=== PATIENT | female | born 1975 | race Caucasian/White ===

== ENCOUNTER 2021-12-10 17:53 | Inpatient (IN) | payer OTHER, SELFPAY ==
[2021-12-10] VITALS (8 sets, daily range): BP systolic 93–136; BP diastolic 57–96; PULSE 52–69; RESP 10–20; TEMP 36.8; O2SAT 94–97
--- NOTE | ~2021-12-10 | CT_ITS ---
EXAMINATION: CT abdomen pelvis w con DATE: 12/10/2021 21:18 INDICATION: abd pain TECHNIQUE: Computed tomography (CT) of the abdomen and pelvis was performed with 100 mL Omnipaque-350 intravenous contrast. Automated exposure control and iterative reconstruction technique were employe d. The dose-length product was 933.57 mGy-cm. COMPARISON: 05/01/2019. FINDINGS: Lower thorax: Bibasilar scar/atelectasis. Liver: Periportal edema. Severe stenosis of the main portal vein, distal flow is preserved into the l iver. The main portal vein, confluence, and splenic vein are not well seen. Biliary/Gallbladder: Gallbladder is dilated to 4.3 cm. Common bile duct is not well seen. Pancreas: Chronic dilation of the pancreatic duct, to a lesser degree than on the comparison study. P ancreatic atrophy and calcification. Hypoenhancing areas in calcification present in the pancreatic h ead. Spleen: Normal. Adrenals:No mass. Kidneys: No mass, stone, or hydronephrosis. GI tract: No small or large bowel dilation. Normal appendix. Mesentery/Peritoneum: Peripancreatic mesenteric edema. Upper abdominal varices and lymphadenopathy. Retroperitoneum: No mass. Pelvis: Marked bladder distention. Remaining pelvic organs are within normal limits. Soft Tissues: Soft tissues and body wall unremarkable. Bones: No acute osseous finding. IMPRESSION: 1. Peripancreatic edema may reflect acute on chronic pancreatitis. 2. Hypodensity and calcification in the pancreatic head may reflect a pancreatic mass or edema. Kavon rison to more recent outside studies would be helpful if available. 3. Severe stenosis versus chronic nonocclusive thrombosis of the main portal vein with periportal cary ma. 4. Gallbladder hydrops, possibly due to common bile duct obstruction, noting the common bile duct is not well seen in this examination. 5. Upper abdominal varices and upper abdominal lymphadenopathy. 6. Marked bladder distention. Reviewed, dictated and finalized at location K. IMPRESSION: 1. Peripancreatic edema may reflect acute on chronic pancreatitis. 2. Hypodensity and calcification in the pancreatic head may reflect a pancreati c mass or edema. Comparison to more recent outside studies would be helpful if available. 3. Severe stenosis versus chronic nonocclusive thrombosis of the main portal ve in with periportal edema. 4. Gallbladder hydrops, possibly due to common bile duct obstruction, noting th e common bile duct is not well seen in this examination. 5. Upper abdominal varices and upper abdominal lymphadenopathy. 6. Marked bladder distention.
--- NOTE | ~2021-12-10 | US_ITS ---
EXAMINATION: US abdomen limited DATE: 12/11/2021 09:21 INDICATION: Pancreatitis. TECHNIQUE: Multiple grayscale and Doppler ultrasound images of the abdomen were obtained. COMPARISON: CT abdomen and pelvis 12/10/21 FINDINGS: The visualized portion of the head of the pancreas demonstrates heterogeneous echogenicity. There is dilatation of the pancreatic duct in the visualized portion of the body of the pancreas. Th e liver is normal without focal lesion. There is normal flow in the visualized portion of main portal vein. The gallbladder is distended. No gallstones or gallbladder wall thickening. There is no sonogr aphic Valencia sign. The common duct is normal and measures 5 mm. IMPRESSION: 1. Acute on chronic pancreatitis. 2. Gallbladder distention, which may be secondary to fasting. Reviewed, dictated and finalized at location A.
--- NOTE | 2021-12-10 18:00 | ED.ABDPAIN ---
HPI - Abdominal Pain General Chief Complaint: Abdominal Pain Stated Complaint: tumor on pancreas Time Seen by Provider: 12/10/21 18:00 History of Present Illness HPI narrative: 46-year-old female with a history of pancreatic cancer presents to the emergency room via EMS for evaluation of abdominal pain. Patient states that she is a chronic alcoholic and has been drinking today which caused her to have suspected pancreatitis. Patient states she has been nauseated without any vomiting. Patient is currently under the care of oncologist and GI specialty in [facility]. Related Data Allergies Allergy/AdvReac Type Severity Reaction Status Date / Time Penicillins Allergy Unknown Unknown Verified 12/10/21 20:11 Review of Systems Review of Systems: CONSTITUTIONAL: Denies fever, chills, or sweats. EYES: Denies visual changes, redness, or discharge. ENT: Denies rhinorrhea, congestion, sore throat, or otalgia. CARDIOVASCULAR: Denies chest pain, palpitations, or edema. RESPIRATORY: Denies cough or dyspnea. GASTROINTESTINAL: Reports abdominal pain and nausea GENITOURINARY: Denies dysuria or hematuria. SKIN: Denies rash or itching. MUSCULOSKELETAL: Denies back pain, joint pain, or myalgia. NEUROLOGIC: Denies headache, numbness, dizziness, or weakness. PSYCHIATRIC: Denies anxiety or depression. Exam Narrative: GENERAL: Well-appearing, well-nourished, no physical limitations, and in no acute distress. HEAD: Normocephalic, atraumatic. EYES: Conjunctivae normal, PERRLA and EOMI. CHEST: Clear to auscultation. No respiratory distress. No wheezes rales or rhonchi. No tenderness. HEART: Regular rate and rhythm. No murmur heard. Normal peripheral pulses. ABDOMEN: Soft, epigastric and upper abdominal tenderness, nondistended, normal active bowel sounds. EXTREMITIES: Normal range of motion. No edema. No clubbing or cyanosis SKIN: Warm, dry, no rash. No noted wounds NEURO: No focal deficits. Alert and oriented x3. MAEW. CN's II-XI intact bilaterally, normal gait PSYCH: Cooperative. Normal mood and affect. Course Vital Signs Vital signs: Vital Signs Temperature 36.8 C 12/10/21 17:55 Pulse Rate 69 12/10/21 17:55 Respiratory Rate 20 12/10/21 17:55 Blood Pressure 117/64 12/10/21 17:55 Pulse Oximetry 96 12/10/21 17:55 Oxygen Delivery Room Air 12/10/21 17:55 Temperature 36.8 C 12/10/21 17:55 Pulse Rate 52 L 12/10/21 22:54 Respiratory Rate 12 12/10/21 22:54 Blood Pressure 127/80 12/10/21 22:54 Pulse Oximetry 95 12/10/21 22:54 Oxygen Delivery Room Air 12/10/21 17:55 MDM - Abdominal Pain Lab Data Result diagrams: 12/10/21 18:23 12/10/21 18:23 Labs: Lab Results 12/10/21 12/10/21 12/10/21 Range/Units 18:23 18:23 18:23 WBC 8.1 (4.5-10.0) K/mm3 RBC 4.56 (4.2-5.4) M/mm3 Hgb 12.8 (12.0-15.0) g/dL Hct 39.0 (37.0-47.0) % MCV 85.5 (80-100) fl MCH 28.1 (26-34) pg MCHC 32.8 (32-36) g/dl RDW 14.2 (11.5-14.5) % Plt Count 307 (150-375) k/mm3 MPV 9.7 (7.4-10.4) fl Immature Gran % (Auto) 0.1 (0-0.5) % Neut % (Auto) 53.2 (45.5-73.1) % Lymph % (Auto) 37.3 (18.3-44.2) % Carroll % (Auto) 8.6 H (2.6-8.5) % Eos % (Auto) 0.7 (0-4.4) % Baso % (Auto) 0.1 L (0.2-1.2) % Lymph # (Auto) 3.02 (0.9-3.2) K/mm3 Carroll # (Auto) 0.7 H (0.1-0.6) K/mm3 Eos # (Auto) 0.1 (0-0.3) K/mm3 Baso # (Auto) 0.0 (0.0-0.1) K/mm3 Abs Immat Gran (auto) 0.01 (0.00-0.031) K/mm3 Absolute Neuts (auto) 4.3 (1.3-6.7) K/mm3 Absolute Nucleated RBC 0.0 (0.0-0.012) K/mm3 Nucleated RBC % 0.0 (0.0-0.2) % Sodium 143 (137-145) mmol/L Potassium 4.2 (3.4-5.0) mmol/L Chloride 105 (98-107) mmol/L Carbon Dioxide 23 (22-30) mmol/L Anion Gap 15 (8-16) mmol/L BUN 19 H (7-17) mg/dL Creatinine 0.80 (0.7-1.0) mg/dL Estim Creat Clear Calc 96 ml/min Estimated GFR > 60 (59 - )
[2021-12-10 18:42] LABS: Basophils Percent Auto 0.1 % (0.2-1.2); Eosinophils Absolute Auto 0.1 K/mm3 (0-0.3); Eosinophils Percent Auto 0.7 % (0-4.4); Hemoglobin 12.8 g/dL (12.0-15.0); Immature Granulocyte Absolute 0.01 K/mm3 (0.00-0.031); Immature Granulocyte Percent A 0.1 % (0-0.5); Lymphocytes Absolute Auto 3.02 K/mm3 (0.9-3.2); Lymphocytes Percent Auto 37.3 % (18.3-44.2); Mean Corpuscular HGB Conc 32.8 g/dl (32-36); Mean Corpuscular Hemoglobin 28.1 pg (26-34); Mean Corpuscular Volume 85.5 fl (80-100); Mean Platelet Volume 9.7 fl (7.4-10.4); Monocytes Absolute Auto 0.7 K/mm3 (0.1-0.6); Monocytes Percent Auto 8.6 % (2.6-8.5); Neutrophils Absolute Auto 4.3 K/mm3 (1.3-6.7); Neutrophils Percent Auto 53.2 % (45.5-73.1); Platelet Count Result 307 k/mm3 (150-375); Red Blood Count 4.56 M/mm3 (4.2-5.4); Red Cell Distribution Width 14.2 % (11.5-14.5); White Blood Count 8.1 K/mm3 (4.5-10.0)
[2021-12-10 18:53] LABS: Ethanol 258 mg/dL (<10)
[2021-12-10 18:54] LABS: Alanine Aminotransferase 61 U/L (6-35); Albumin Level 4.8 g/dL (3.5-5.1); Alkaline Phosphatase 104 U/L (38-126); Anion Gap 15 mmol/L (8-16); Aspartate Amino Transferase 54 U/L (14-36); Bilirubin,Total 0.3 mg/dL (0.2-1.3); Blood Urea Nitrogen 19 mg/dL (7-17); Calcium 8.6 mg/dL (8.4-10.2); Carbon Dioxide 23 mmol/L (22-30); Chloride 105 mmol/L (98-107); Estimated CRCL calculation 96 ml/min; Estimated Glomerular Filt Rate > 60; Glucose 97 mg/dL (65-110); Lipase 59 U/L (23-300); Potassium 4.2 mmol/L (3.4-5.0); Sodium 143 mmol/L (137-145)
[2021-12-10] MEDS: SODIUM CHLORIDE 0.9% IV 1,000 ML 999 ML IV CONT ×2 (20:12→22:15)
[2021-12-10] MEDS: METOCLOPRAMIDE HCL INJ 10 MG/2 ML VIAL IV PUSH (20:12)
[2021-12-10] MEDS: diphenhydrAMINE HCl INJ 50 MG/ML VIAL 25 MG IV PUSH (20:15)
--- NOTE | 2021-12-10 20:53 | PC.NURSE ---
Pt requesting pain medication. BANDAR Ta notified, no new orders.
--- NOTE | 2021-12-10 21:05 | PC.NURSE ---
Pt made aware of need for urine sample, refused to attempt. Pt educated on purpose of urine sample, and need for test for CT. Pt states Im not , just do the scan . Ct and PRIMARY CARE COORDINATOR Keyon notified.
[2021-12-10] MEDS: KETOROLAC 30 MG/ML VIAL (*BKC) IV PUSH (21:39)
--- NOTE | 2021-12-10 21:42 | PC.NURSE ---
Pt reports she urinated in CT, but did not provide sample for testing.
[2021-12-10] MEDS: HYDROmorphone HCL INJ (*CRX) 1 MG/ML SYR 0.5 MG IV PUSH (22:15)
[2021-12-10 22:33] LABS: Appearance Urine Clear (Clear); Bilirubin Urine Negative (Negative); Color Urine Yellow (Yellow); Glucose Urine UA Negative (Negative); Ketones Urine Negative (Negative); Leukocyte Esterase Ur Negative LEU/UL (Negative); Nitrate Urine Negative (Negative); Protein Urine Negative (Negative); Specific Grav Ur <= 1.005 (1.001-1.035); Urobilinogen Urine 0.2 mg/dL (<2.0); pH Urine 5.5 (5.0-9.0)
[2021-12-10 22:34] LABS: RBC Urine 0-2 /hpf (0-2); Squamous Epithelial Cell Urine Rare /hpf (Few)
[2021-12-10 22:35] LABS: Add Urine Microscopic? YES; Blood Urine Trace (Negative)
[2021-12-10 22:46] LABS: Amphetamine Screen Urine Negative (Negative); Barbiturate Screen Urine Negative (Negative); Benzodiazepines Screen Urine Negative (Negative); Cannabinoid Screen Urine Positive (Negative); Cocaine Screen Urine Negative (Negative); Methadone Screen Urine Negative (Negative); Opiate Screen Urine Negative (Negative); Phencyclidine Screen Urine Negative (Negative)
[2021-12-10] MEDS: THIAMINE HCL 200 MG/2 ML VIAL 100 MG IV PUSH (23:10)
[2021-12-10 23:30] LABS: SARS-CoV-2 RNA PCR Negative
[2021-12-10] MEDS: SODIUM CHLORIDE 0.9% IV 1,000 ML 200 ML IV CONT (23:52)
[2021-12-11 00:16] VITALS: BP 140/83; PULSE 50; RESP 28; TEMP 36.9; O2SAT 99; BMI 31.1
[2021-12-11] MEDS: HYDROmorphone HCL INJ (*CRX) 1 MG/ML SYR 0.5 MG IV PUSH (00:22)
--- NOTE | 2021-12-11 00:29 | ADMGEN ---
This patient, Chitra Connor, was admitted to [facility] Surg Room 303-01. Patient/family oriented to hospital policies and general routines including ID bracelet, bed and alarms, visiting hours, pain management, procedures, bathroom and other care routines, personal items, smoking policy, room service/diet, and visiting hours. Information on how to activate the Rapid Response Team has been discussed. Patient/Family are encouraged to report perceived risks to care and to ask questions if they do not understand what they are told or what they should do.
--- NOTE | 2021-12-11 01:24 | PM.IMHP ---
H&P: HPI History of Present Illness Date/Time: 12/11/21 01:24 Chief Complaint: Abdominal pain Narrative: 46-year-old female with a past medical history of alcoholism, chronic pancreatitis, chronic pancreatic insufficiency, esophageal varices, benign pancreatic mass and pre diabetes who presented to the ER with abdominal pain after going on a 4 day binge. The patient reports that she has been sober from alcohol for 27 years. She came up to [place] from [facility] to visit her family. Due to various social stressors she started drinking again 4 days ago. She has been binge drinking since that time. Her last alcoholic beverage was on the evening of the . She started having abdominal pain the day after she started drinking. The pain is a 10/10 in intensity and is constant and aching. She has been able to drink her alcohol but has not been able to eat any food. Her pain became so severe that she began having nausea and vomiting and is now having persistent dry heaves. She denies any hematemesis or coffee-ground emesis. She does have history of chronic constipation and did use MiraLax for couple of days. Since that time she has had 1 soft stool yesterday. She denies any hematochezia or melena. She reports that she chronically feels bloated. She denies any chest pain, shortness breast, cough, or congestion. She reports no sensation of incomplete bladder emptying, dysuria or changes in urinary frequency. She reports that she has been taking ODT Zofran with no relief in her nausea. She is upset with herself that she has relapsed with her alcohol use after being sober since she was 27 years old. She reports that she has a therapist herself and knows the triggers. She has even been talking with her therapist on a daily basis herself. Review of Systems Review of Systems: 12 systems were reviewed with pertinent positives and negatives per HPI. Except as documented in the HPI, all other systems were reviewed and are negative. [facility] Past Medical History Medical History (Updated 12/11/21 @ 02:22 by Zuly Nguyen DO) Alcoholism Anorexia nervosa Anxiety and depression Chronic pancreatitis 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 Hypothyroidism Pancreatic mass She reports that she has had 8 biopsies in 2020 with benign pathology Portal vein thrombosis Pre-diabetes Surgical History Surgical History (Updated 12/11/21 @ 02:11 by Zuly Nguyen DO) History of esophagogastroduodenoscopy (EGD) History of tonsillectomy and adenoidectomy Family History Family History (Updated 12/11/21 @ 02:12 by Zuly Nguyen DO) Mother DVT (deep venous thrombosis) Father Sjogren's disease Suicide and self-inflicted injury by firearm Sibling Pulmonary embolism Social History Social History (Updated 12/11/21 @ 02:14 by Zuly Nguyen DO) Smoking packs per day: 0.15 Smoking cigarettes per day: 3.0 Years smoked: 28 Smoking pack-years: 4.20 Smoking status: Current every day smoker Tobacco type: cigarettes Alcohol intake: current Alcohol use details: She drank heavily for 7 years but quit at the age of 27. She relapsed 12/07/2021. Substance use: current Other substance usage details: THC gummies Additional living arrangements comments: She lives in [facility]. She lives alone. She is in the area visiting her mother. Additional occupation/education comments: She has a therapist. Spiritual care concerns: No Meds Home Medications and Allergies Home Medications Medication Instructions Recorded Confirmed Type diclofenac sodium 1 % topical gel 2 g topical Q4H PRN Muscle Pain 12/11/21 12/11/21 History fluoxetine 40 mg capsule 40 mg PO DAILY 12/11/21 12/11/21 History gabapentin 100 mg capsule 100 mg PO TID 12/11/21 12/11/21 History levothyroxine 75 mcg tablet 75 mcg PO DAILY 12/11/21 12/11/21 History [id number]-nxusiee 2 cap PO TI
[2021-12-11] MEDS: FAMOTIDINE 20 MG/2 ML VIAL IV PUSH ×3 (02:35→21:52)
[2021-12-11] MEDS: HYDROmorphone HCL INJ (*CRX) 1 MG/ML SYR IV PUSH ×7 (02:39→21:52)
[2021-12-11] MEDS: KETOROLAC 15 MG/ML VIAL (*BKC) IV PUSH (05:44)
[2021-12-11] MEDS: SODIUM CHLORIDE 0.9% IV 1,000 ML 200 ML IV CONT ×2 (05:51→11:50)
[2021-12-11 06:00] VITALS: BP 129/79; PULSE 62; RESP 18; TEMP 36.5; O2SAT 92
[2021-12-11 06:45] LABS: Hematocrit 36.6 % (37.0-47.0); Hemoglobin 11.6 g/dL (12.0-15.0); Mean Corpuscular HGB Conc 31.7 g/dl (32-36); Mean Corpuscular Hemoglobin 28.2 pg (26-34); Mean Corpuscular Volume 89.1 fl (80-100); Mean Platelet Volume 10.3 fl (7.4-10.4); Platelet Count Result 240 k/mm3 (150-375); Red Blood Count 4.11 M/mm3 (4.2-5.4); Red Cell Distribution Width 14.6 % (11.5-14.5); White Blood Count 7.1 K/mm3 (4.5-10.0)
[2021-12-11 06:57] LABS: Alanine Aminotransferase 60 U/L (6-35); Albumin Level 3.6 g/dL (3.5-5.1); Alkaline Phosphatase 94 U/L (38-126); Anion Gap 9 mmol/L (8-16); Aspartate Amino Transferase 58 U/L (14-36); Bilirubin,Total 0.3 mg/dL (0.2-1.3); Blood Urea Nitrogen 16 mg/dL (7-17); Calcium 7.9 mg/dL (8.4-10.2); Carbon Dioxide 22 mmol/L (22-30); Chloride 111 mmol/L (98-107); Estimated CRCL calculation 127 ml/min; Estimated Glomerular Filt Rate > 60; Glucose 76 mg/dL (65-110); Potassium 4.2 mmol/L (3.4-5.0); Sodium 142 mmol/L (137-145)
[2021-12-11] MEDS: ENOXAPARIN 40 MG/0.4 ML SYRINGE SUB-Q (08:08)
[2021-12-11] MEDS: THIAMINE HCL 200 MG/2 ML VIAL 100 MG IV PUSH (08:09)
[2021-12-11] MEDS: ONDANSETRON INJ 4 MG/2 ML VIAL IV PUSH (08:19)
[2021-12-11] MEDS: chlordiazePOXIDE (*CRX) 25 MG CAPSULE PO ×3 (10:19→23:08)
--- NOTE | 2021-12-11 12:46 | PM.IMPN ---
Progress Note: A&P Assessment and Plan (1) Acute on chronic pancreatitis: Code(s): K85.90 - Acute pancreatitis without necrosis or infection, unspecified; K86.1 - Other chronic pancreatitis Status: Acute Assessment and Plan: Patient has acute on chronic pancreatitis due to relapse in her alcoholism. NPO diet. Will allow ice chips. IV fluid rehydration. Decrease to 125 ml/hr. Scheduled IV tylenol with prn dilaudid for pain RUQ US showed gallbladder distension which is likely due to fasting state. No eivdence of common bile duct dilation. Lipase is normal AST and ALT are minimally elevated. Will continue to monitor. Total bili is normal Advance to clear liquids when pain is improving and nausea/vomiting resolve (2) Alcohol intoxication in relapsed alcoholic: Code(s): F10.21 - Alcohol dependence, in remission Status: Acute Assessment and Plan: Her alcohol level on presentation was 3 times the legal limit. The patient reports that this was an isolated recurrence of her drinking (due to issues with re-entering her old environment) Implement CIWA protocol Librium prn CIWA >8 Thiamine and folic acid supplementation Patient has been in contact with her therapist She plans to abstain from alcohol from here on out (3) Intractable nausea and vomiting: Code(s): R11.2 - Nausea with vomiting, unspecified Status: Acute Assessment and Plan: Secondary to pancreatitis. continue p.rkaela Looney (4) Pancreatic mass: Code(s): K86.89 - Other specified diseases of pancreas Status: Acute Assessment and Plan: Known problem. The patient reports that she has had multiple EGDs with biopsies over the last year. Her pathology is always returned as benign. Outpatient follow up/monitoring as scheduled Subjective Date/time seen: 12/11/21 12:46 Interval history: Date of service: 12/23/2021 Chitra Connor is a 46-year-old female with history of alcohol abuse in remission up until 3 days ago, chronic pancreatitis, anxiety, depression, hypothyroidism, and prediabetes who is seen in follow-up for acute on chronic pancreatitis. She complains of 10/10 epigastric pain that radiates to the back. She did have some improvement after getting pain medicine earlier this morning and her pain decreased to about a 6/10 at that time, but is now back up. She endorses nausea and 2 episodes of bilious emesis today. She had a loose, light color bowel movement today. Denies any blood in her stool. She denies fevers or chills. No shortness of breath, cough, chest pain, palpitations. She does feel dizzy and weak. She endorses sweats, anxiety, and tremor. Denies hallucinations. Denies history of alcohol withdrawal seizure. States she has been in contact with her therapist who is helping her through this difficult time. The patient states that she just came back to this area from [place], [place]. She had not been back since the of her father and her brother. Unfortunately returning to this area was triggering for her. Her mother had alcohol in the house and she began drinking again. Review of Systems Review of Systems: All systems reviewed & are unremarkable except as noted in HPI and below Exam Narrative: General: Well-nourished, well-appearing 46-year-old female, sitting up in bed, comfortable, NARD Neuro: awake, alert and oriented x4, speech clear, no focal neuro deficits noted HEENMT: normocephalic, atraumatic, EOMI, sclerae anicteric, moist oral mucosa Respiratory: clear to auscultation bilaterally, nonlabored breathing Cardio: regular rate, regular rhythm with S1-S2 Abdomen: nondistended, normoactive bowel sounds, soft, tender to palpation in epigastric region Extremities: no edema, erythema, or tenderness to palpation, DP pulses 2+ bilaterally Skin: no rashes or lesions, warm and dry Psych: appropriate mood and affect, judgment and insight intact Objective Adin
[2021-12-11 14:00] VITALS: BP 131/81; PULSE 60; RESP 14; TEMP 36.6; O2SAT 98
[2021-12-11] MEDS: SODIUM CHLORIDE 0.9% IV 1,000 ML 125 ML IV CONT (16:45)
[2021-12-11 20:00] VITALS: PULSE 60; RESP 14; O2SAT 98
[2021-12-11 21:28] VITALS: BP 128/80; PULSE 50; RESP 18; TEMP 36.9; O2SAT 95
[2021-12-11] MEDS: traMADol HCL (*CRX) 50 MG TABLET PO (23:07)
[2021-12-12] MEDS: SODIUM CHLORIDE 0.9% IV 1,000 ML 125 ML IV CONT ×3 (00:29→21:21)
[2021-12-12] MEDS: HYDROmorphone HCL INJ (*CRX) 1 MG/ML SYR IV PUSH ×7 (01:27→23:20)
[2021-12-12] MEDS: traMADol HCL (*CRX) 50 MG TABLET PO ×3 (03:03→12:49)
[2021-12-12 05:29] VITALS: BP 137/85; PULSE 52; RESP 17; TEMP 36.7; O2SAT 94
[2021-12-12] MEDS: PROMETHAZINE HCL 25 MG/ML AMPUL IM (05:58)
[2021-12-12 06:26] LABS: Anion Gap 7 mmol/L (8-16); Blood Urea Nitrogen 6 mg/dL (7-17); Calcium 8.2 mg/dL (8.4-10.2); Carbon Dioxide 25 mmol/L (22-30); Chloride 108 mmol/L (98-107); Estimated CRCL calculation 127 ml/min; Estimated Glomerular Filt Rate > 60; Glucose 82 mg/dL (65-110); Lipase 27 U/L (23-300); Magnesium 1.9 mg/dL (1.6-2.3); Potassium 3.6 mmol/L (3.4-5.0); Sodium 140 mmol/L (137-145)
[2021-12-12 06:33] LABS: Hematocrit 34.2 % (37.0-47.0); Hemoglobin 10.7 g/dL (12.0-15.0); Mean Corpuscular HGB Conc 31.3 g/dl (32-36); Mean Corpuscular Hemoglobin 27.9 pg (26-34); Mean Corpuscular Volume 89.3 fl (80-100); Mean Platelet Volume 9.8 fl (7.4-10.4); Platelet Count Result 169 k/mm3 (150-375); Red Blood Count 3.83 M/mm3 (4.2-5.4); Red Cell Distribution Width 14.7 % (11.5-14.5); White Blood Count 4.1 K/mm3 (4.5-10.0)
[2021-12-12 08:12] VITALS: PULSE 82; O2SAT 95
[2021-12-12] MEDS: ENOXAPARIN 40 MG/0.4 ML SYRINGE SUB-Q (08:22)
[2021-12-12] MEDS: THIAMINE HCL 200 MG/2 ML VIAL 100 MG IV PUSH (08:23)
[2021-12-12] MEDS: FAMOTIDINE 20 MG/2 ML VIAL IV PUSH ×2 (08:23→21:26)
[2021-12-12] MEDS: chlordiazePOXIDE (*CRX) 25 MG CAPSULE PO ×3 (11:02→23:28)
--- NOTE | 2021-12-12 11:56 | PM.IMPN ---
Progress Note: A&P Assessment and Plan (1) Acute on chronic pancreatitis: Code(s): K85.90 - Acute pancreatitis without necrosis or infection, unspecified; K86.1 - Other chronic pancreatitis Status: Acute Assessment and Plan: Patient has acute on chronic pancreatitis due to relapse in her alcoholism. NPO diet. Will allow ice chips. Continue IVF of 125 ml/hr. Continue Tylenol and Dilaudid for pain as well as Zofran for antiemetic. RUQ US showed gallbladder distension which is likely due to fasting state. No eivdence of common bile duct dilation. Lipase remains normal AST and ALT are minimally elevated. Will continue to monitor. Total bili is normal Unable to advance diet today. (2) Alcohol intoxication in relapsed alcoholic: Code(s): F10.21 - Alcohol dependence, in remission Status: Acute Assessment and Plan: Her alcohol level on presentation was 3 times the legal limit. The patient reports that this was an isolated recurrence of her drinking (due to issues with re-entering her old environment) Implement CIWA protocol Librium prn CIWA >8 Thiamine and folic acid supplementation Patient has been in contact with her therapist She plans to abstain from alcohol from here on out (3) Intractable nausea and vomiting: Code(s): R11.2 - Nausea with vomiting, unspecified Status: Acute Assessment and Plan: Secondary to pancreatitis. continue p.r.n. Zofran (4) Pancreatic mass: Code(s): K86.89 - Other specified diseases of pancreas Status: Acute Assessment and Plan: Known problem. The patient reports that she has had multiple EGDs with biopsies over the last year. Her pathology is always returned as benign. Outpatient follow up/monitoring as scheduled Time Spent With Patient Time with patient: 15 - 25 minutes Subjective Date/time seen: 12/12/21 1030 This pt. is examined at the bedside in interval assessment after she was admitted for an acute on chronic pancreatitis and she had relapsed on her ETOH abuse after being sober for 27 years. She continues to have Epigastric and LUQ abdominal pain with nausea but no vomiting. She has no CP, Dyspnea, Headache, Lightheadedness or Dizziness. Review of Systems Review of Systems: All systems reviewed & are unremarkable except as noted in HPI and below Exam Const: General: no acute distress and uncomfortable HENMT: General nose exam: Normal nares present and no epistaxis Mouth: Yes moist mucous membranes Eyes: General: appearance normal, both eyes and all related structures Sclera: sclerae normal Pupils: Equal, round and reactive pupils present (Bilateral pupils are small and 2 mm.) EOM: EOMs intact bilaterally Neck: Neck: supple and no JVD Lymphatic: lymphadenopathy not noted Resp: Effort & Inspection: normal respiratory effort Auscultation: clear to auscultation bilaterally Cardio: Rate: regular rate Rhythm: regular rhythm Heart sounds: no gallops, no murmurs and no rubs GI: GI Palp: Yes Soft to palpation Auscultation: normal bowel sounds Skin: General skin exam: normal color and no rashes or lesions noted Wounds: no wounds Neuro: General: gait normal Speech: normal speech Motor exam (neuro): 5/5 motor strength present throughout and Normal motor muscle tone present throughout Sensory Exam: normal sensation Extrem: General: normal to inspection, no edema and no pedal edema Other: Freely and equally MAEW and without deficit. Psych: Mental Status: mental status grossly normal Affect: normal affect Objective Data Vital Signs Vital Signs: Vital Signs - 24 hr 12/11/21 14:00 12/11/21 20:00 12/11/21 21:28 Temperature 97.9 F 98.4 F Pulse Rate 60 60 50 L Respiratory Rate 14 14 18 Blood Pressure 131/81 128/80 Pulse Oximetry 98 98 95 Oxygen Delivery Room Air 12/12/21 05:29 12/12/21 08:12 Temperature 98.1 F Pulse Rate 52 L 82 Respiratory Rate 17 Blood Pr
[2021-12-12] MEDS: ONDANSETRON INJ 4 MG/2 ML VIAL IV PUSH (12:45)
[2021-12-12 14:00] VITALS: BP 132/78; PULSE 60; RESP 16; TEMP 36.2; O2SAT 95
--- NOTE | 2021-12-12 18:01 | PC.NURSE ---
pt is getting prn dilauded and librium on the clock. pt seems to get very agitated if you are not on the dot with giving these as needed medications. this nurse described the duration and frequency of pt's as needed medications. pt apologized to this nurse for raising voice and getting agitated. pt seems to forget about how often she can get her meds and when the last time she received prn medications.
[2021-12-12 20:00] VITALS: BP 140/88; PULSE 58; RESP 16; O2SAT 92
[2021-12-12 21:23] VITALS: O2SAT 92
[2021-12-12 22:00] VITALS: BP 140/88; PULSE 58; RESP 16; TEMP 36.3; O2SAT 92
[2021-12-13] VITALS: BP 140/88
[2021-12-13] MEDS: HYDROmorphone HCL INJ (*CRX) 1 MG/ML SYR IV PUSH ×2 (02:26→05:58)
[2021-12-13 04:00] VITALS: BP 135/87
[2021-12-13] MEDS: SODIUM CHLORIDE 0.9% IV 1,000 ML 125 ML IV CONT ×2 (05:56→16:31)
[2021-12-13] MEDS: chlordiazePOXIDE (*CRX) 25 MG CAPSULE PO ×3 (05:58→20:12)
[2021-12-13 06:00] VITALS: BP 135/87; PULSE 65; RESP 18; TEMP 36.3; O2SAT 97
[2021-12-13 07:28] LABS: Basophils Percent Auto 0.3 % (0.2-1.2); Eosinophils Absolute Auto 0.1 K/mm3 (0-0.3); Hematocrit 34.2 % (37.0-47.0); Hemoglobin 10.6 g/dL (12.0-15.0); Immature Granulocyte Absolute 0.01 K/mm3 (0.00-0.031); Immature Granulocyte Percent A 0.3 % (0-0.5); Lymphocytes Absolute Auto 1.24 K/mm3 (0.9-3.2); Lymphocytes Percent Auto 31.5 % (18.3-44.2); Mean Corpuscular Hemoglobin 27.7 pg (26-34); Mean Corpuscular Volume 89.5 fl (80-100); Mean Platelet Volume 10.2 fl (7.4-10.4); Monocytes Absolute Auto 0.4 K/mm3 (0.1-0.6); Monocytes Percent Auto 9.1 % (2.6-8.5); Neutrophils Absolute Auto 2.2 K/mm3 (1.3-6.7); Neutrophils Percent Auto 55.8 % (45.5-73.1); Platelet Count Result 163 k/mm3 (150-375); Red Blood Count 3.82 M/mm3 (4.2-5.4); Red Cell Distribution Width 14.6 % (11.5-14.5); White Blood Count 3.9 K/mm3 (4.5-10.0)
[2021-12-13 07:47] LABS: Alanine Aminotransferase 49 U/L (6-35); Albumin Level 3.4 g/dL (3.5-5.1); Alkaline Phosphatase 103 U/L (38-126); Anion Gap 8 mmol/L (8-16); Aspartate Amino Transferase 33 U/L (14-36); Bilirubin,Total 0.6 mg/dL (0.2-1.3); Blood Urea Nitrogen 5 mg/dL (7-17); Calcium 8.4 mg/dL (8.4-10.2); Carbon Dioxide 25 mmol/L (22-30); Chloride 107 mmol/L (98-107); Estimated CRCL calculation 127 ml/min; Estimated Glomerular Filt Rate > 60; Glucose 90 mg/dL (65-110); Lipase 28 U/L (23-300); Magnesium 1.7 mg/dL (1.6-2.3); Potassium 3.6 mmol/L (3.4-5.0); Sodium 140 mmol/L (137-145)
[2021-12-13] MEDS: ENOXAPARIN 40 MG/0.4 ML SYRINGE SUB-Q (08:41)
[2021-12-13] MEDS: THIAMINE HCL 200 MG/2 ML VIAL 100 MG IV PUSH (08:41)
[2021-12-13] MEDS: FAMOTIDINE 20 MG/2 ML VIAL IV PUSH ×2 (08:41→20:15)
[2021-12-13] MEDS: HYDROcodone/acetaminophen (*CRX) 5-325 MG TABLET 1 TAB PO ×3 (08:49→20:07)
--- NOTE | 2021-12-13 08:57 | PM.IMPN ---
Progress Note: A&P Assessment and Plan (1) Acute on chronic pancreatitis: Code(s): K85.90 - Acute pancreatitis without necrosis or infection, unspecified; K86.1 - Other chronic pancreatitis Status: Acute Assessment and Plan: Patient has acute on chronic pancreatitis due to relapse in her alcoholism. diet advanced to clear liquid. Continue IVF of 125 ml/hr. Continue Tylenol For pain in addition to change of dose of Dilaudid to 0.5 mg q.6 hours p.r.n. and the addition of Lehigh 5/325 q.6 hours p.r.n. pain. Goal is to decrease the amount of IV Dilaudid Utilized. RUQ US showed gallbladder distension which is likely due to fasting state. No eivdence of common bile duct dilation. Lipase remains normal AST and ALT are minimally elevated. Will continue to monitor. Total bili is normal (2) Alcohol intoxication in relapsed alcoholic: Code(s): F10.21 - Alcohol dependence, in remission Status: Acute Assessment and Plan: Her alcohol level on presentation was 3 times the legal limit. The patient reports that this was an isolated recurrence of her drinking (due to issues with re-entering her old environment) Implement CIWA protocol Librium prn CIWA >8 Thiamine and folic acid supplementation Patient has been in contact with her therapist She plans to abstain from alcohol from here on out (3) Intractable nausea and vomiting: Code(s): R11.2 - Nausea with vomiting, unspecified Status: Acute Assessment and Plan: Secondary to pancreatitis. continue p.r.n. Zofran (4) Pancreatic mass: Code(s): K86.89 - Other specified diseases of pancreas Status: Acute Assessment and Plan: Known problem. The patient reports that she has had multiple EGDs with biopsies over the last year. Her pathology is always returned as benign. Outpatient follow up/monitoring as scheduled Time Spent With Patient Time with patient: 15 - 25 minutes Subjective Date/time seen: 12/13/21 6827 This 46-year-old female patient was examined at the bedside today following her admission for chronic pancreatitis after relapsing and alcohol binge. She continues to complain of some left upper quadrant abdominal pain and epigastric abdominal pain, however reports it is slightly better. Review of pain medications utilized demonstrates the patient has continually received Dilaudid every 3 hours. As patient does endorse that her pain is somewhat better this morning I will decrease her Dilaudid from 1 mg every 3 hours p.r.n. to 0.5 mg Q 6 p.r.n. and also initiate Lehigh 5/325 Q 6 hours p.r.n.. Her diet is being advanced to a clear liquid and we will continue to monitor her she feels overnight and in the morning. She currently denies any chest pain, dyspnea, nausea, vomiting, diarrhea, headache, lightheadedness, dizziness. Review of Systems Review of Systems: All systems reviewed & are unremarkable except as noted in HPI and below Exam Const: General: no acute distress and uncomfortable HENMT: General nose exam: Normal nares present and no epistaxis Mouth: Yes moist mucous membranes Eyes: General: appearance normal, both eyes and all related structures Sclera: sclerae normal Pupils: Equal, round and reactive pupils present (Bilateral pupils are small and 2 mm.) EOM: EOMs intact bilaterally Neck: Neck: supple and no JVD Lymphatic: lymphadenopathy not noted Resp: Effort & Inspection: normal respiratory effort Auscultation: clear to auscultation bilaterally Cardio: Rate: regular rate Rhythm: regular rhythm Heart sounds: no gallops, no murmurs and no rubs GI: Inspection: non-distended GI Palp: Yes Soft to palpation and Yes Tenderness to palpation present (GI) ( Epigastric and left upper quadrant) Auscultation: normal bowel sounds Skin: General skin exam: normal color and no rashes or lesions noted Wounds: no wounds Neuro: General: gait normal Cranial nerves: Yes Equal, round
[2021-12-13] MEDS: HYDROmorphone HCL INJ (*CRX) 1 MG/ML SYR 0.5 MG IV PUSH ×3 (10:54→22:28)
[2021-12-13 14:44] VITALS: BP 142/88; PULSE 61; RESP 16; TEMP 36.3; O2SAT 99
[2021-12-13] MEDS: PROMETHAZINE HCL 25 MG/ML AMPUL IM (18:00)
[2021-12-13 21:41] VITALS: BP 132/99; PULSE 63; RESP 20; TEMP 36.9; O2SAT 97
[2021-12-14 04:00] VITALS: BP 143/78
[2021-12-14 05:39] VITALS: BP 143/78; PULSE 51; RESP 17; TEMP 36.6; O2SAT 97
[2021-12-14] MEDS: ENOXAPARIN 40 MG/0.4 ML SYRINGE SUB-Q (08:44)
[2021-12-14] MEDS: FOLIC ACID 1 MG TABLET PO (09:48)
[2021-12-14] MEDS: FLUoxetine HCL 20 MG CAPSULE 40 MG PO (09:48)
[2021-12-14] MEDS: GABAPENTIN 100 MG CAPSULE PO (09:48)
[2021-12-14] MEDS: LEVOTHYROXINE SODIUM 75 MCG TABLET PO (09:48)
[2021-12-14] MEDS: THIAMINE HCL 100 MG TABLET PO (09:48)
[2021-12-14] MEDS: FAMOTIDINE 20 MG TABLET PO (09:48)
[2021-12-14] MEDS: HYDROcodone/acetaminophen (*CRX) 5-325 MG TABLET 1 TAB PO (09:51)
[2021-12-14] MEDS: LIPASE/AMYLASE/PROTEASE 12,000 UNITS CAP 1 CAP PO (11:42)
--- NOTE | 2021-12-14 13:30 | PM.DS ---
DS: Admitting Diagnosis Discharge Date 12/14/2021 1330 Admitting Diagnosis Acute on chronic pancreatitis Alcohol dependence Intractable nausea and vomiting Pancreatic mass, chronic DS: Discharge Diagnosis Discharge Diagnosis (1) Acute on chronic pancreatitis: Code(s): K85.90 - Acute pancreatitis without necrosis or infection, unspecified; K86.1 - Other chronic pancreatitis Status: Acute (2) Alcohol intoxication in relapsed alcoholic: Code(s): F10.21 - Alcohol dependence, in remission Status: Acute (3) Intractable nausea and vomiting: Code(s): R11.2 - Nausea with vomiting, unspecified Status: Acute (4) Pancreatic mass: Code(s): K86.89 - Other specified diseases of pancreas Status: Chronic DS: Summary Hospital Course Reason for hospitalization: abdominal pain. Hospital Course: Chitra Connor is a 46-year-old female with a past medical history of alcohol abuse, chronic pancreatitis, chronic pancreatic insufficiency, esophageal varices, benign pancreatic mass and pre diabetes. She presented to the ER with c/o abdominal pain after going on a 4 day alcohol binge.? The patient reported she has been sober from alcohol for 27 years.? She came up to [place] from [place], [place] to visit family.? Due to various social stressors, she started drinking again 4 days prior to admission. Her last alcoholic beverage was on the evening of the .? She started having abdominal pain the day after she started drinking.? The pain is a 10/10 in intensity, constant and aching.? She has been able to drink her alcohol but has not been able to eat any food.? Her pain became so severe that she began having nausea and vomiting and then persistent dry heaves.? She denied hematemesis or coffee-ground emesis.? She does have history of chronic constipation and used MiraLax for couple of days.? Since that time she has had 1 soft stool on the day prior to admission.? She denied hematochezia or melena.? She reported chronic bloated feeling.? She denied any chest pain, shortness breast, cough, or congestion. She was taking ODT Zofran with no relief in her nausea. In the ED, her HR was low 52-68 bpm, but asymptomatic. All other vitals were stable. Lab work showed unremarkable CBC. Lipase 59, and mildly elevated LFTs, AST 54, ALT 61, with normal Alk phos and Tbili. She had an elevated alcohol level upon admission. CT abd/pelvis showed peripancreatic edema suggesting acute on chronic pancreatitis and hypodensity at the pancreatic head suggestive of pancreatic mass. Of note, the patient has a history of pancreatic benign tumor that is being followed outpatient in [place] by her Felling Machine Operator and Oncologist. The patient was admitted to the medical floor and placed on bowel rest. She was treated with aggressive hydration. Pain was controlled wit PRN IV dilaudid, scheduled IV tylenol for 24 hours and PRN IV toradol. She was treated with IV Zofran and IM phenergan PRN for nausea. RUQ ultrasound was obtained and demonstrated gallbladder distension which is likely due to fasting state. No eivdence of common bile duct dilation. CIWA protocol with PRN librium PO for elevated CIWA score. Her CIWA score initially was 11 during her hospital stay, but declined to 1 on the day of discharge. Her diet was advanced with good tolerance. [place] PRN was added for pain control and pancreatic enzymes were resumed. Care coordination was consulted for abstinence counseling and resources. The patient was discharged home in stable condition, tolerating regular consistency food and with controlled pain. She was counseled on alcohol abstinence, low fat diet and seeking further outpatient management for alcohol use disorder. She was instructed to contact her mental health counselor and schedule follow up with her PCP. Time spent discussing smoking cessation with patient: 3 to 10 minutes Status at Discharge Cognitive/behavioral status at discharge: madeline Lama
--- NOTE | 2021-12-14 13:33 | PC.NURSE ---
This nurse was made aware of patient leaving the floor prior to discharge instructions reviewed. Floor nurse noted to patient that she would be in with dc instructions in just a moment. Patient stated, I don't read those things anyway and to just mail them to her. This nurse tried to call patient's contact, which is the same as her mother's contact number, and left a message noting that she has a script with her discharge instructions for a narcotic that cannot be mailed. supervisor coin machine made aware.
--- NOTE | 2021-12-14 14:17 | PC.NURSE ---
This nurse called phone number listed again for patient following up on discharge instructions and pain medication. Per patient's father, the patient and her mother were still gone and for this nurse to call patient's mothers cell phone number. This nurse attempted call but voicemail is full.
--- NOTE | 2021-12-14 14:33 | PC.NURSE ---
this nurse told pt multiple times about her discharging. 1320 this nurse went into pt room to verify pt's pharmacy. told pt that this nurse needed to go over discharge with pt and have her sign paperwork. this nurse was told by load haul dump operator that pt stated she does not need discharge paperwork and she will throw away papers when she get's home. she stated that we can mail discharge paperwork. 1330 this nurse printed out discharge paperwork and got script for norco pain medication. orientee told this nurse that pt was walking down the hallway. this nurse told orientee to try and stop pt. pt was in the elevator and left. This nurse made charge nurse aware of situation immediately. Charge nurse called wash house worker and made her aware as well. charge nurse was told to call pt or family and let them know that script cannot be mailed. Left a voicemail with no answer. Waiting for call back at this time.
--- NOTE | 2021-12-14 19:20 | PC.NURSE ---
Patient returned to hospital at 1550 and picked up and signed discharge instructions and picked up narcotic script.
--- NOTE | 2021-12-27 00:08 | PM.IMHP ---
H&P: HPI History of Present Illness Date/Time: 12/26/21 18:30 Chief Complaint: Abdominal pain. Narrative: This is a 48-year-old female with history of alcoholism, chronic pancreatitis, chronic pancreatic insufficiency, benign pancreatic mass, esophageal varices, and prediabetes who presented to the emergency department for evaluation of abdominal pain. She is from [place] but has been in [place] for the last several weeks visiting family. Due to very social stressors she started drinking again several weeks ago and in fact she was admitted to the hospital on 12/10/2021 with acute on chronic pancreatitis. She did well with supportive care and was discharged on 12/14/2021. Unfortunately she continues to drink and she has had daily upper abdominal pain, much worse the last 2 days. She describes a severe dull and constant pain throughout the upper abdomen, more so in the left upper quadrant which radiates somewhat into the back. She has had ongoing nausea and had a couple of episodes of emesis and diarrhea couple of days ago though that has resolved. Imaging today once again showed peripancreatic edema presumed to reflect acute on chronic pancreatitis and given ongoing symptoms she is being admitted for further care. After receiving IV pain medication she is feeling somewhat better. She denies fever, chills, sweats, hematemesis, melena, and hematochezia. 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 Hypothyroidism Pancreatic mass She reports that she has had 8 biopsies in 2020 with benign pathology Portal vein thrombosis Pre-diabetes Surgical History Surgical History (Updated 12/11/21 @ 02:11 by Zuly Nguyen DO) History of esophagogastroduodenoscopy (EGD) History of tonsillectomy and adenoidectomy Family History Family History (Updated 12/11/21 @ 02:12 by Zuly Nguyen DO) Mother DVT (deep venous thrombosis) Father Sjogren's disease Suicide and self-inflicted injury by firearm Sibling Pulmonary embolism Social History Social History (Updated 12/11/21 @ 02:14 by Zuly Nguyen DO) Smoking packs per day: 0.15 Smoking cigarettes per day: 3.0 Years smoked: 28 Smoking pack-years: 4.20 Smoking status: Current some day smoker Tobacco type: cigarettes Alcohol intake: current Drinks per week: 70 Alcohol use details: She drank heavily for 7 years but quit at the age of 27. She relapsed 12/07/2021. Substance use: former Substance use type: prescription drug Other substance usage details: THC eusebio Additional living arrangements comments: She lives in [facility]. She lives alone. She is in the area visiting her mother. Additional occupation/education comments: She has a therapist. Spiritual care concerns: No Meds Home Medications and Allergies Home Medications Medication Instructions Recorded Confirmed Type diclofenac sodium 1 % topical gel 2 g topical Q4H PRN Muscle Pain 12/11/21 12/26/21 History fluoxetine 40 mg capsule 40 mg PO DAILY 12/11/21 12/26/21 History levothyroxine 75 mcg tablet 75 mcg PO DAILY 12/11/21 12/26/21 History qsxthg-asomwsip-oezgcff 2 cap PO TIDWMEAL 12/11/21 12/26/21 History 5,000-17,000-24,000 unit capsule, delayed rel (Zenpep) meloxicam 15 mg tablet 15 mg PO DAILY 12/11/21 12/26/21 History ondansetron 4 mg disintegrating 4 mg translingual Q8H PRN Nausea 12/11/21 12/26/21 History tablet And Vomiting tizanidine 4 mg tablet 6 mg PO 3XD PRN Muscle Spasm 12/11/21 12/26/21 History trazodone 50 mg tablet 50 mg PO QHS 12/11/21 12/26/21 History amitriptyline 25 mg tablet 50 mg PO BID 12/26/21 12/26/21 History gabapentin 300 mg capsule 900 mg PO TID PRN Pain (Scale 12/26/21 12/26/21 History Score 1-3) pantoprazole 20 mg tablet,
== END 2021-12-14 13:30 | disposition home or self-care (01) | DRG 282 ==
LOC: ANHED 23:08 → ANH3MEDSUR 23:39
PROVIDERS: Nurse Practitioner Adult Health; Physician Assistant; Admitting Provider Internal Medicine; Emergency Provider Nurse Practitioner Family; Visit Provider Nurse Practitioner Family
DX: K85.20 Alcohol induced acute pancreatitis without necrosis or infection (principal); K86.0 Alcohol-induced chronic pancreatitis; F10.21 Alcohol dependence, in remission; K86.89 Other specified diseases of pancreas; Z20.822 Contact with and (suspected) exposure to COVID-19; R73.03 Prediabetes; E03.9 Hypothyroidism, unspecified; F41.8 Other specified anxiety disorders; K86.9 Disease of pancreas, unspecified; F17.210 Nicotine dependence, cigarettes, uncomplicated
CPT/HCPCS: 36415; 74177; 76705; 80048; 80053; 80307; 81001; 81025; 83690; 83735; 85025; 85027; 96361; 96367; 96372; 96374; 96375; 96376; 99285; A9270; C9803; G0378; J0131; J1170; J1200; J1650; J1885; J2405; J2550; J2765; J3411; J7030; Q9967; U0003; U0005

== ENCOUNTER 2021-12-26 13:46 | Inpatient (IN) | payer OTHER, SELFPAY ==
[2021-12-26] VITALS (36 sets, daily range): BP systolic 118–150; BP diastolic 71–103; PULSE 53–82; RESP 11–24; TEMP 36.1–37; O2SAT 90–99; BMI 31.4
--- NOTE | ~2021-12-26 | CT_ITS ---
EXAMINATION: CT abdomen pelvis w con DATE: 12/26/2021 17:16 INDICATION: N/V, hx pancreatitis and benign tumor to pancreas, medial abdominal pain, radiating to ba ck TECHNIQUE: Computed tomography (CT) of the abdomen and pelvis was performed with 100 mL Omnipaque-350 intravenous contrast. Automated exposure control and iterative reconstruction technique were employe d. The dose-length product was 1001.74 mGy-cm. COMPARISON: 12/10/2021. FINDINGS: Lower thorax: Bibasilar scar/atelectasis. Liver: Fatty infiltration. Mild periportal edema. Main portal occlusion versus severe stenosis, with reconstitution at the bifurcation of the left and right main portal veins. Splenic vein thrombosis. Biliary/Gallbladder: Distended gallbladder, unchanged. Common bile duct not well visualized. Pancreas: Unchanged pancreatic duct dilation and fat stranding about the pancreatic head stable pancr eatic calcifications. Spleen: Normal. Adrenals:No mass. Kidneys: No mass, stone, or hydronephrosis. GI tract: Mild distal esophageal and gastric wall edema. No small or large bowel dilation. Normal lester endix. Mesentery/Peritoneum: No ascites, mass, or free air. Upper abdominal collateral vessels and lymphaden opathy. Retroperitoneum: No mass. Pelvis: Pelvic organs are within normal limits. Soft Tissues: Soft tissues and body wall unremarkable. Bones: No acute osseous finding. IMPRESSION: Unchanged peripancreatic edema presumed to reflect acute on chronic pancreatitis, splenic and portal vein occlusion/severe stenosis, and gallbladder hydrops. Reviewed, dictated and finalized at location K. IMPRESSION: Unchanged peripancreatic edema presumed to reflect acute on chronic pancreatiti s, splenic and portal vein occlusion/severe stenosis, and gallbladder hydrops.
--- NOTE | 2021-12-26 14:20 | PC.NURSE ---
Pt refuses to get into hospital gown until she gets pain medication.
[2021-12-26] MEDS: MORPHINE SULFATE (*CRX) 4 MG/ML INJ IV PUSH (14:27)
[2021-12-26] MEDS: ONDANSETRON INJ 4 MG/2 ML VIAL IV PUSH (14:27)
[2021-12-26] MEDS: SODIUM CHLORIDE 0.9% IV 1,000 ML 999 ML IV CONT (14:28)
[2021-12-26 14:33] LABS: Basophils Percent Auto 0.6 % (0.2-1.2); Eosinophils Absolute Auto 0.2 K/mm3 (0-0.3); Eosinophils Percent Auto 2.4 % (0-4.4); Hematocrit 39.3 % (37.0-47.0); Hemoglobin 12.7 g/dL (12.0-15.0); Immature Granulocyte Absolute 0.02 K/mm3 (0.00-0.031); Immature Granulocyte Percent A 0.3 % (0-0.5); Lymphocytes Absolute Auto 2.14 K/mm3 (0.9-3.2); Lymphocytes Percent Auto 33.8 % (18.3-44.2); Mean Corpuscular HGB Conc 32.3 g/dl (32-36); Mean Corpuscular Hemoglobin 28.7 pg (26-34); Mean Corpuscular Volume 88.7 fl (80-100); Mean Platelet Volume 10.1 fl (7.4-10.4); Monocytes Absolute Auto 0.6 K/mm3 (0.1-0.6); Neutrophils Absolute Auto 3.4 K/mm3 (1.3-6.7); Neutrophils Percent Auto 53.9 % (45.5-73.1); Platelet Count Result 226 k/mm3 (150-375); Red Blood Count 4.43 M/mm3 (4.2-5.4); Red Cell Distribution Width 15.3 % (11.5-14.5); White Blood Count 6.3 K/mm3 (4.5-10.0)
[2021-12-26 14:34] LABS: Appearance Urine Clear (Clear); Bilirubin Urine Negative (Negative); Color Urine Yellow (Yellow); Glucose Urine UA Negative (Negative); Ketones Urine Negative (Negative); Leukocyte Esterase Ur 1+ LEU/UL (Negative); Nitrate Urine Negative (Negative); Protein Urine Negative (Negative); Specific Grav Ur <= 1.005 (1.001-1.035); Urobilinogen Urine 0.2 mg/dL (<2.0); pH Urine 5.5 (5.0-9.0)
[2021-12-26 14:46] LABS: Add Urine Microscopic? YES; Alanine Aminotransferase 58 U/L (6-35); Albumin Level 4.7 g/dL (3.5-5.1); Alkaline Phosphatase 123 U/L (38-126); Anion Gap 12 mmol/L (8-16); Aspartate Amino Transferase 124 U/L (14-36); Bilirubin,Total 0.5 mg/dL (0.2-1.3); Blood Urea Nitrogen 13 mg/dL (7-17); Blood Urine Trace-Intact (Negative); Calcium 9.3 mg/dL (8.4-10.2); Carbon Dioxide 27 mmol/L (22-30); Chloride 93 mmol/L (98-107); Estimated CRCL calculation 73 ml/min; Estimated Glomerular Filt Rate 53; Glucose 95 mg/dL (65-110); Lipase 83 U/L (23-300); Potassium 4.3 mmol/L (3.4-5.0); Sodium 132 mmol/L (137-145)
[2021-12-26 14:48] LABS: Ethanol 64 mg/dL (<10)
[2021-12-26 14:50] LABS: Bacteria Urine Trace /hpf; Mucus Urine Rare /lpf; RBC Urine 0-2 /hpf (0-2); Squamous Epithelial Cell Urine Few /hpf (Few); WBC Urine 0-3 /hpf
--- NOTE | 2021-12-26 15:39 | ED.GENADULT ---
HPI - General Adult General Chief complaint: Abdominal Pain Stated complaint: abd pain Time Seen by Provider: 12/26/21 14:11 History of Present Illness HPI narrative: Patient is a 46-year-old female who presents ER with epigastric pain. Ongoing for 6 days. Patient was recently admitted here for alcoholic hepatitis. She has a known benign mass on her pancreas as well as a pseudocyst. She has no fevers or chills or sweats. She reports she relapsed on alcohol after being discharged from the hospital here. Patient reports she has epigastric discomfort. Denies burning. She does feel radiation to her back. Related Data Home Medications Medication Instructions Recorded Confirmed diclofenac sodium 1 % topical gel 2 g topical Q4H PRN Muscle Pain 12/11/21 12/26/21 fluoxetine 40 mg capsule 40 mg PO DAILY 12/11/21 12/26/21 levothyroxine 75 mcg tablet 75 mcg PO DAILY 12/11/21 12/26/21 zodtlt-[id number]-[id number] 2 cap PO TIDWMEAL 12/11/21 12/26/21 5,000-17,000-24,000 unit capsule, delayed rel (Zenpep) meloxicam 15 mg tablet 15 mg PO DAILY 12/11/21 12/26/21 ondansetron 4 mg disintegrating 4 mg translingual Q8H PRN Nausea 12/11/21 12/26/21 tablet And Vomiting tizanidine 4 mg tablet 6 mg PO 3XD PRN Muscle Spasm 12/11/21 12/26/21 trazodone 50 mg tablet 50 mg PO QHS 12/11/21 12/26/21 amitriptyline 25 mg tablet 50 mg PO BID 12/26/21 12/26/21 gabapentin 300 mg capsule 900 mg PO TID PRN Pain (Scale 12/26/21 12/26/21 Score 1-3) Allergies Allergy/AdvReac Type Severity Reaction Status Date / Time Penicillins Allergy Unknown Unknown Verified 12/10/21 23:53 Review of Systems Review of Systems: All systems reviewed & are unremarkable except as noted in HPI and below Constitutional: Constitutional: Denies chills, Denies fatigue and Denies fever(s) ENT: Denies nasal congestion and Denies sore throat Cardiovascular: Cardiovascular: Denies chest pain, Denies rapid heart rate and Denies radiating jaw, neck or arm pain Respiratory: Respiratory: Denies cough Gastrointestinal: Gastrointestinal: Reports abdominal pain, Denies diarrhea, Reports nausea and Denies vomiting Musculoskeletal: Musculoskeletal: Reports back pain PMFSH Past Medical History Medical History (Updated 12/26/21 @ 22:31 by Tee Cruz MD) Alcoholism Anorexia nervosa Anxiety and depression Chronic pancreatitis 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 Hypothyroidism Pancreatic mass She reports that she has had 8 biopsies in 2020 with benign pathology Portal vein thrombosis Pre-diabetes Surgical History Surgical History (Updated 12/11/21 @ 02:11 by Zuly Nguyen DO) History of esophagogastroduodenoscopy (EGD) History of tonsillectomy and adenoidectomy Family History Family History (Updated 12/11/21 @ 02:12 by Zuly Nguyen DO) Mother DVT (deep venous thrombosis) Father Sjogren's disease Suicide and self-inflicted injury by firearm Sibling Pulmonary embolism Social History Social History (Updated 12/11/21 @ 02:14 by Zuly Nguyen DO) Smoking packs per day: 0.15 Smoking cigarettes per day: 3.0 Years smoked: 28 Smoking pack-years: 4.20 Smoking status: Current every day smoker Tobacco type: cigarettes Alcohol intake: current Alcohol use details: She drank heavily for 7 years but quit at the age of 27. She relapsed 12/07/2021. Substance use: current Other substance usage details: THC gummies Additional living arrangements comments: She lives in [facility]. She lives alone. She is in the area visiting her mother. Additional occupation/education comments: She has a therapist. Spiritual care concerns: No Exam Narrative: GENERAL: Well-appearing, well-nourished, and in no acute distress. HEAD: Normocephalic, atraumatic. ENT: Mucous membranes moist. NECK: Supple. CHEST: Clear to auscultation. No respiratory distress. HEART: Regular rate a
[2021-12-26] MEDS: BELLADONNA ALK/PHENOB ELIX 10 ML, MAG HYDROX/ALUMINUM HYD/SIMETH 30 ML, LIDOCAINE HCL 2... PO (15:49)
--- NOTE | 2021-12-26 15:52 | PC.NURSE ---
pt requesting pain medication states morphine doesnt work for me usually they give me dilaudid. ERP aware. see MAR.
[2021-12-26 16:59] LABS: Pregnancy On Board Control Positive; Urine Pregnancy Test Negative
--- NOTE | 2021-12-26 18:00 | PM.IMHP ---
H&P: HPI History of Present Illness Date/Time: 12/05/21 18:00 Chief Complaint: Abdominal pain. Narrative: This is a 48-year-old female with history of alcoholism, chronic pancreatitis, chronic pancreatic insufficiency, benign pancreatic mass, esophageal varices, and prediabetes who presented to the emergency department for evaluation of abdominal pain. She is from [place] but has been in [place] for the last several weeks visiting family. Due to very social stressors she started drinking again several weeks ago and in fact she was admitted to the hospital on 12/10/2021 with acute on chronic pancreatitis. She did well with supportive care and was discharged on 12/14/2021. Unfortunately she continues to drink (she cannot qualify) and she has had daily upper abdominal pain, much worse the last 2 days. She describes a severe dull and constant pain throughout the upper abdomen, more so in the left upper quadrant which radiates somewhat into the back. She reports ongoing nausea and had a couple of episodes of emesis and diarrhea a couple of days ago though that has resolved. Imaging today once again showed peripancreatic edema presumed to reflect acute on chronic pancreatitis and given ongoing symptoms she is being admitted for further care. After receiving IV pain medication she is feeling somewhat better. She denies fever, chills, sweats, hematemesis, melena, and hematochezia. Of note, she has been in touch with [facility], [facility], and [facility] however all 3 reportedly declined to take the patient as a client for alcohol detox. Review of Systems Review of Systems: Twelve systems were reviewed and are negative except for as per HPI. [facility] Past Medical History Medical History (Updated 12/27/21 @ 01:52 by Beata Echols PA-C) Alcoholism Anorexia nervosa Anxiety and depression Chronic pancreatitis 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 Hypothyroidism Pancreatic mass She reports that she has had 8 biopsies in 2020 with benign pathology Portal vein thrombosis Pre-diabetes Surgical History Surgical History History of esophagogastroduodenoscopy (EGD) History of tonsillectomy and adenoidectomy Family History Family History Mother DVT (deep venous thrombosis) Father Sjogren's disease Suicide and self-inflicted injury by firearm Sibling Pulmonary embolism Social History Social History Smoking packs per day: 0.15 Smoking cigarettes per day: 3.0 Years smoked: 28 Smoking pack-years: 4.20 Smoking status: Current some day smoker Tobacco type: cigarettes Alcohol intake: current Drinks per week: 70 Alcohol use details: She drank heavily for 7 years but quit at the age of 27. She relapsed 12/07/2021. Substance use: former Substance use type: prescription drug Other substance usage details: THC gummies Additional living arrangements comments: She lives in [facility]. She lives alone. She is in the area visiting her mother. Additional occupation/education comments: She has a therapist. Spiritual care concerns: No Meds Home Medications and Allergies Home Medications Medication Instructions Recorded Confirmed Type diclofenac sodium 1 % topical gel 2 g topical Q4H PRN Muscle Pain 12/11/21 12/26/21 History fluoxetine 40 mg capsule 40 mg PO DAILY 12/11/21 12/26/21 History levothyroxine 75 mcg tablet 75 mcg PO DAILY 12/11/21 12/26/21 History htyujv-[id number]-wgddxho 2 cap PO TIDWMEAL 12/11/21 12/26/21 History 5,000-17,000-24,000 unit capsule, delayed rel (Zenpep) meloxicam 15 mg tablet 15 mg PO DAILY 12/11/21 12/26/21 History ondansetron 4 mg disintegrating 4 mg translingual Q8H PRN Nausea 12/11/21 12/26/21 History tablet And Vomiting tizanidine 4 mg tablet 6 mg
[2021-12-26] MEDS: HYDROmorphone HCL INJ (*CRX) 1 MG/ML SYR 0.5 MG IV PUSH ×2 (18:14→22:10)
[2021-12-26 19:39] LABS: SARS-CoV-2 RNA PCR Negative
--- NOTE | 2021-12-26 20:02 | PC.NURSE ---
called report at 1936. RORY rinaldi on floor could not access SBAR because our charge nurse just placed tthe bed in the system.
--- NOTE | 2021-12-26 20:14 | PC.NURSE ---
Patient is demanding 2mg of Dilaudid before she goes upstairs. Patient is refusing to change into a gown. Patient states that this RN doesn't know what she is doing and she is demanding that we have to give her 2mg of Dilaudid and to get my carpenter supervisor because she states, Doctor H ordered me 2mg of Dilaudid This RN explained to her that I could not give her more then what was ordered.
--- NOTE | 2021-12-26 20:38 | PC.NURSE ---
This RN was told to not take the patient up until the bed is made.
[2021-12-26] MEDS: SODIUM CHLORIDE 0.9% IV 1,000 ML 125 ML IV CONT (21:05)
--- NOTE | 2021-12-26 23:43 | ADMGEN ---
This patient, Chitra Connor, was admitted to [facility] Room 323-02. Patient/family oriented to hospital policies and general routines including ID bracelet, bed and alarms, visiting hours, pain management, procedures, bathroom and other care routines, personal items, smoking policy, room service/diet, and visiting hours. Information on how to activate the Rapid Response Team has been discussed. Patient/Family are encouraged to report perceived risks to care and to ask questions if they do not understand what they are told or what they should do.
[2021-12-27] MEDS: chlordiazePOXIDE (*CRX) 25 MG CAPSULE PO ×4 (01:56→20:39)
[2021-12-27] MEDS: HYDROmorphone HCL INJ (*CRX) 1 MG/ML SYR 0.5 MG IV PUSH ×6 (02:02→22:34)
[2021-12-27 03:39] VITALS: PULSE 86
[2021-12-27 06:00] VITALS: BP 138/90; PULSE 60; RESP 16; TEMP 36.1; O2SAT 97
[2021-12-27] MEDS: SODIUM CHLORIDE 0.9% IV 1,000 ML 125 ML IV CONT ×2 (06:20→20:38)
[2021-12-27] MEDS: LEVOTHYROXINE SODIUM 75 MCG TABLET PO (06:20)
[2021-12-27 06:38] LABS: Hemoglobin 11.3 g/dL (12.0-15.0); Mean Corpuscular HGB Conc 32.3 g/dl (32-36); Mean Corpuscular Volume 89.7 fl (80-100); Mean Platelet Volume 10.7 fl (7.4-10.4); Platelet Count Result 180 k/mm3 (150-375); Red Cell Distribution Width 15.7 % (11.5-14.5); White Blood Count 4.9 K/mm3 (4.5-10.0)
[2021-12-27 06:58] LABS: Alanine Aminotransferase 78 U/L (6-35); Albumin Level 3.9 g/dL (3.5-5.1); Alkaline Phosphatase 115 U/L (38-126); Anion Gap 8 mmol/L (8-16); Aspartate Amino Transferase 167 U/L (14-36); Bilirubin,Total 0.6 mg/dL (0.2-1.3); Blood Urea Nitrogen 12 mg/dL (7-17); Calcium 8.7 mg/dL (8.4-10.2); Carbon Dioxide 32 mmol/L (22-30); Chloride 99 mmol/L (98-107); Estimated CRCL calculation 110 ml/min; Estimated Glomerular Filt Rate > 60; Glucose 94 mg/dL (65-110); Lipase 44 U/L (23-300); Sodium 139 mmol/L (137-145)
[2021-12-27 09:06] VITALS: O2SAT 97
[2021-12-27] MEDS: ENOXAPARIN 40 MG/0.4 ML SYRINGE SUB-Q (10:31)
[2021-12-27] MEDS: THIAMINE HCL 200 MG/2 ML VIAL 100 MG IV PUSH (10:33)
[2021-12-27] MEDS: FOLIC ACID 1 MG/0.2 ML INJ IV PUSH (10:33)
[2021-12-27 14:00] VITALS: BP 130/69; PULSE 70; RESP 16; TEMP 36.6; O2SAT 93
[2021-12-27] MEDS: DICLOFENAC SODIUM 1% 100 GM GEL (*BKC) 1 APPLIC TOPICAL (14:33)
--- NOTE | 2021-12-27 18:06 | PM.IMPN ---
Progress Note: A&P Assessment and Plan (1) Acute on chronic pancreatitis: Code(s): K85.90 - Acute pancreatitis without necrosis or infection, unspecified; K86.1 - Other chronic pancreatitis Status: Acute Assessment and Plan: Patient has acute on chronic pancreatitis due to relapse in her alcoholism. diet advanced to clear liquid. Continue IVF of 125 ml/hr. Continue Tylenol For pain in addition to change of dose of Dilaudid to 0.5 mg q.6 hours p.r.n. with Tylenol in between. AST and ALT are minimally elevated. Will continue to monitor. Total bili is normal (2) Alcohol intoxication in relapsed alcoholic: Code(s): F10.21 - Alcohol dependence, in remission Status: Acute Assessment and Plan: Her alcohol level on presentation was 3 times the legal limit. The patient reports that this was an isolated recurrence of her drinking (due to issues with re-entering her old environment) Implement CIWA protocol with p.r.n. diazepam Librium 25 q.8h scheduled Thiamine and folic acid supplementation Patient has been in contact with her therapist She plans to abstain from alcohol from here on out. Lives in [place], however came here the beginning of December to be with her mom which has caused a lot of social stressors for her. Plans to move back as soon as she can (3) Intractable nausea and vomiting: Code(s): R11.2 - Nausea with vomiting, unspecified Status: Acute Assessment and Plan: Secondary to pancreatitis. continue p.r.n. Zofran Time Spent With Patient Time with patient: 25 - 35 minutes Subjective Date/time seen: 12/27/21 18:06 Patient examined, chart reviewed. Patient reports her alcohol withdrawal symptoms are controlled, pain managed with current regimen. Patient is willing to trial a clear liquid diet. Review of Systems Review of Systems: Ten point ROS reviewed, negative unless otherwise specified per subjective Exam Narrative: General: Mildly ill-appearing female sitting up in bed. Weight: 90.5 kg. BMI: 31.2. HEENT: PERRL, EOMI. Sclerae anicteric. Tacky mucous membranes. Neck: Supple. Respiratory: Lungs are clear to auscultation bilaterally. Cardiovascular: Regular rate and rhythm with S1-S2. Gastrointestinal: Abdomen is soft and nondistended with positive bowel sounds. Slight tenderness to epigastric area. No guarding or rebound tenderness. Skin: Warm and dry. No rash or lesions on limited exam. Extremities: No cyanosis, clubbing, or edema. Radial and pedal pulses intact. Neurological: Alert. Cranial nerves 2-12 are grossly intact. No gross focal deficits to casual conversation. Psychiatric: Pleasant and cooperative with normal mood and affect. Judgment and insight intact. Objective Data Vital Signs Vital Signs: Vital Signs - 24 hr 12/26/21 18:14 12/26/21 18:15 12/26/21 18:16 Temperature Pulse Rate 59 L 59 L 62 Pulse Rate [Radial Palpation] Respiratory Rate 12 17 18 Blood Pressure 145/71 H 150/96 H Pulse Oximetry 96 95 96 Oxygen Delivery 12/26/21 18:30 12/26/21 18:31 12/26/21 20:54 Temperature Pulse Rate 53 L 61 82 Pulse Rate [Radial Palpation] Respiratory Rate 14 19 18 Blood Pressure 143/103 H Pulse Oximetry 94 98 98 Oxygen Delivery 12/26/21 21:00 12/26/21 23:39 12/27/21 03:39 Temperature 97 F L Pulse Rate 69 Pulse Rate [Radial Palpation] 86 Respiratory Rate 18 Blood Pressure 145/76 H Pulse Oximetry 96 Oxygen Delivery Room Air 12/27/21 06:00 12/27/21 09:06 12/27/21 08:00 Temperature 96.9 F L Pulse Rate 60 Pulse Rate [Radial Palpation] Respiratory Rate 16 Blood Pressure 138/90 Pulse Oximetry 97 97 Oxygen Delivery Room Air Room Air 12/27/21 14:00 Temperature 98 F Pulse Rate 70 Pulse Rate [Radial Palpation] Respiratory Rate 16 Blood Pressure 130/69 Pulse Oximetry 93 Oxygen Delivery Intake/Output Intake/Output: Intake & Output
[2021-12-27] MEDS: ACETAMINOPHEN 325 MG TABLET 650 MG PO (20:38)
[2021-12-27] MEDS: traZODone HCL 50 MG TABLET PO (20:38)
[2021-12-27 22:00] VITALS: BP 133/84; PULSE 69; RESP 16; TEMP 36.5; O2SAT 95
[2021-12-28] MEDS: HYDROmorphone HCL INJ (*CRX) 1 MG/ML SYR 0.5 MG IV PUSH ×3 (03:24→11:36)
[2021-12-28] MEDS: chlordiazePOXIDE (*CRX) 25 MG CAPSULE PO ×2 (05:46→14:04)
[2021-12-28] MEDS: LEVOTHYROXINE SODIUM 75 MCG TABLET PO (05:47)
[2021-12-28 06:00] VITALS: BP 154/94; PULSE 64; RESP 16; TEMP 36.3; O2SAT 98
[2021-12-28] MEDS: SODIUM CHLORIDE 0.9% IV 1,000 ML 125 ML IV CONT (06:35)
[2021-12-28] MEDS: ACETAMINOPHEN 325 MG TABLET 650 MG PO (06:36)
[2021-12-28] MEDS: FLUoxetine HCL 20 MG CAPSULE 40 MG PO (08:32)
[2021-12-28] MEDS: LIPASE/AMYLASE/PROTEASE 12,000 UNITS CAP 1 CAP PO ×3 (08:33→17:06)
[2021-12-28] MEDS: ENOXAPARIN 40 MG/0.4 ML SYRINGE SUB-Q (08:33)
[2021-12-28] MEDS: AMITRIPTYLINE HCL 25 MG TABLET 50 MG PO ×2 (08:33→17:06)
[2021-12-28] MEDS: THIAMINE HCL 200 MG/2 ML VIAL 100 MG IV PUSH (08:34)
[2021-12-28] MEDS: FOLIC ACID 1 MG/0.2 ML INJ IV PUSH (08:37)
[2021-12-28] MEDS: HYDROcodone/acetaminophen (*CRX) 5-325 MG TABLET 1 TAB PO (10:08)
[2021-12-28] MEDS: NICOTINE (*PBKC) 21 MG PATCH 1 PATCH TRANSDERM (10:08)
[2021-12-28 14:00] VITALS: BP 134/82; PULSE 65; RESP 18; TEMP 36.3; O2SAT 95
[2021-12-28] MEDS: MORPHINE SULFATE (*CRX) 2 MG/ML INJ IV PUSH (15:29)
--- NOTE | 2021-12-28 16:08 | PM.IMPN ---
Progress Note: A&P Assessment and Plan (1) Acute on chronic pancreatitis: Code(s): K85.90 - Acute pancreatitis without necrosis or infection, unspecified; K86.1 - Other chronic pancreatitis Status: Acute Assessment and Plan: Patient has acute on chronic pancreatitis due to relapse in her alcoholism. Diet advanced to full liquid Stop IVF Decreased to po oxycodone and Tylenol q.6h AST and ALT are minimally elevated. Will continue to monitor. Total bili is normal (2) Alcohol intoxication in relapsed alcoholic: Code(s): F10.21 - Alcohol dependence, in remission Status: Acute Assessment and Plan: Her alcohol level on presentation was 3 times the legal limit. The patient reports that this was an isolated recurrence of her drinking (due to issues with re-entering her old environment) Implement CIWA protocol with p.r.n. diazepam Patient appears more sedated, will give 1 more dose of Librium 10 mg tomorrow morning Thiamine and folic acid supplementation Patient has been in contact with her therapist She plans to abstain from alcohol from here on out. Lives in [place], however came here the beginning of December to be with her mom which has caused a lot of social stressors for her. Plans to move back as soon as she can (3) Intractable nausea and vomiting: Code(s): R11.2 - Nausea with vomiting, unspecified Status: Acute Assessment and Plan: Secondary to pancreatitis. continue p.r.n. Zofrnew Time Spent With Patient Time with patient: 25 - 35 minutes Subjective Date/time seen: 12/28/21 16:08 Patient examined, chart reviewed. Patient reports improvement in abdominal pain with current regimen. States she was able to tolerate a clear liquid diet. Denies withdrawal symptoms Review of Systems Review of Systems: Ten point ROS reviewed, negative unless otherwise specified per subjective Objective Data Vital Signs Vital Signs: Vital Signs - 24 hr 12/27/21 20:00 12/27/21 22:00 12/28/21 06:00 Temperature 97.7 F 97.3 F L Pulse Rate 69 64 Respiratory Rate 16 16 Blood Pressure 133/84 154/94 H Pulse Oximetry 95 98 Oxygen Delivery Room Air 12/28/21 08:00 12/28/21 14:00 Temperature 97.4 F L Pulse Rate 65 Respiratory Rate 18 Blood Pressure 134/82 Pulse Oximetry 95 Oxygen Delivery Room Air Intake/Output Intake/Output: Intake & Output 12/25/21 12/26/21 12/27/21 12/28/21 23:59 23:59 23:59 23:59 Intake Total 1000 2000 1838 Output Total 1600 Balance 9419 856 [id number] Meds/Results Medications: Active Medications Generic Name Dose Route Start Last Admin Trade Name Freq PRN Reason Stop Dose Admin Acetaminophen 650 mg 12/27/21 01:45 12/28/21 06:36 Acetaminophen 325 Mg Tablet PO 650 mg Q6H PRN Administration Mild Pain (1-3) or Fever Hydrocodone Bitart/Acetaminophen 1 tab 12/28/21 14:45 Hydrocodone/Acetaminophen (*Crx) 5-325 Mg Tablet PO Q4H PRN Pain Rated 4-6 Amitriptyline HCl 50 mg 12/27/21 09:00 12/28/21 08:33 Amitriptyline Hcl 25 Mg Tablet PO 50 mg BID DAXA Administration Lipase/Protease/Amylase 1 cap 12/27/21 08:00 12/28/21 11:50 Lipase/Amylase/Protease 12,000 Units Cap PO 1 cap TIDWM DAXA Administration Chlordiazepoxide HCl 10 mg 12/29/21 09:00 Chlordiazepoxide (*Crx) 10 Mg Capsule PO 12/29/21 09:01 ONCE ONE Diazepam 2.5 mg 12/27/21 01:43 Diazepam Inj (*Crx) 10 Mg/2 Ml Syringe IV PUSH Q8H PRN CIWA > 8 Diclofenac Sodium 1 applic 12/27/21 01:54 12/27/21 14:33 Diclofenac Sodium 1% 100 Gm Gel (*Bkc) TOPICAL 1 applic Q4H PRN Administration Muscle Pain Enoxaparin Sodium 40 mg 12/27/21 09:00 12/28/21 08:33 Enoxaparin 40 Mg/0.4 Ml Syringe SUB-Q 40 mg DAILY DAXA Administration Fluoxetine HCl 40 mg 12/27/21 09:00 12/28/21 08:32 Fluoxetine Hcl 20 Mg Capsule PO 40 mg DAILY DAXA Administration Folic Acid 1 mg
[2021-12-28] MEDS: traZODone HCL 50 MG TABLET PO (19:47)
[2021-12-28] MEDS: oxyCODONE HCL (*CRX) 5 MG TAB IR PO (19:47)
[2021-12-28 22:00] VITALS: BP 144/87; PULSE 64; RESP 17; TEMP 37.1; O2SAT 96
[2021-12-29] MEDS: LEVOTHYROXINE SODIUM 75 MCG TABLET PO (05:36)
[2021-12-29] MEDS: oxyCODONE HCL (*CRX) 5 MG TAB IR PO ×2 (05:56→11:26)
[2021-12-29 06:00] VITALS: PULSE 58; RESP 18; TEMP 37.2; O2SAT 98
[2021-12-29 08:00] VITALS: BP 144/87; PULSE 58; PULSE 86; RESP 18; O2SAT 98
[2021-12-29] MEDS: chlordiazePOXIDE (*CRX) 10 MG CAPSULE PO (08:05)
[2021-12-29] MEDS: NICOTINE (*PBKC) 21 MG PATCH 1 PATCH TRANSDERM (08:05)
[2021-12-29] MEDS: FLUoxetine HCL 20 MG CAPSULE 40 MG PO (08:06)
[2021-12-29] MEDS: LIPASE/AMYLASE/PROTEASE 12,000 UNITS CAP 1 CAP PO ×2 (08:06→11:06)
[2021-12-29] MEDS: ENOXAPARIN 40 MG/0.4 ML SYRINGE SUB-Q (08:06)
[2021-12-29] MEDS: AMITRIPTYLINE HCL 25 MG TABLET 50 MG PO (08:06)
--- NOTE | 2021-12-29 08:13 | PC.NURSE ---
reported that pt has been taking home prescription to Md this morning tizanidine 4 mg PO, gabapentin 300mg po, and meloxicam 15 mg Po. pt also have prpranolol 20 mg po and trazodone 50 mg po in room. Stated has been taking the whole time in hospital. Reported to MD bobby.
--- NOTE | 2021-12-29 08:39 | PC.NURSE ---
Home medications removed from patient's bedside table. Medications placed in zip lock bag and placed in the home medication drawer.
--- NOTE | 2021-12-29 08:40 | PC.NURSE ---
home medication locked up will return once pt is discharging.
--- NOTE | 2021-12-29 08:44 | PC.NURSE ---
IV leaking, removed, changed IV thiamin and folic acid to PO daily via MD Ramirez. Pharmacy com. order placed.
--- NOTE | 2021-12-29 09:32 | PC.NURSE ---
called Md ramirez, pt requiring diet advance low fat, ok'd per MD Ramirez, pt inquiring about discharge and pain medication at discharge, addressed these with Md Ramirez was well. MD Ramirez planning to discharge today.
[2021-12-29] MEDS: FOLIC ACID 1 MG TABLET PO (09:36)
[2021-12-29] MEDS: THIAMINE HCL 100 MG TABLET PO (09:37)
--- NOTE | 2021-12-29 11:12 | PM.DS ---
DS: Admitting Diagnosis Discharge Date 12/29/2021 Admitting Diagnosis Acute on chronic alcoholic pancreatitis DS: Summary Hospital Course Reason for hospitalization: Acute on chronic alcoholic pancreatitis Hospital Course: Presented to [facility] 12/27 for acute abdominal pain after alcohol ingestion. Patient is noted long stent of sobriety in the past, however she came to visit her mother in the beginning of December and began to drink again. 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 Patient was started on pain medications, aggressive IV fluid hydration, bowel rest. Patient was started on Librium and diazepam p.r.n. for alcohol withdrawal. Withdrawal essentially resolved by the next day. Patient able to tolerate regular diet by 12/29, however still having some pain. Patient discharged with 7 days of tramadol along with her home medications. Time Spent with Patient Time attestation: Total time spent providing and/or coordinating discharge services: Exam Narrative: General: Mildly ill-appearing female sitting up in bed. Weight: 90.5 kg. BMI: 31.2. HEENT: PERRL, EOMI. Sclerae anicteric. Tacky mucous membranes. Neck: Supple. Respiratory: Lungs are clear to auscultation bilaterally. Cardiovascular: Regular rate and rhythm with S1-S2. Gastrointestinal: Abdomen is soft and nondistended with positive bowel sounds. Slight tenderness to epigastric area. No guarding or rebound tenderness. Skin: Warm and dry. No rash or lesions on limited exam. Extremities: No cyanosis, clubbing, or edema. Radial and pedal pulses intact. Neurological: Alert. Cranial nerves 2-12 are grossly intact. No gross focal deficits to casual conversation. Psychiatric: Pleasant and cooperative with normal mood and affect. Judgment and insight intact. Discharge Plan Discharge Attending physician on discharge: Dragan Ramirez Discharging Clinician: Dragan Ramirez Patient Disposition: Home, Self-Care Activity: unlimited Diet: low fat Patient Instructions: Antibiotic Form Stand Alone Forms: General Discharge Information Follow-up/Referrals: PHYSICIAN NOT ON STAFF,NONSTAFF [Primary Care Provider] - Discharge Medications: New pantoprazole 20 mg tablet,delayed release (DR/EC) 20 mg PO HS Qty: 14 0RF tramadol [Ultram] 50 mg tablet 25 mg PO Q8H PRN (Reason: pain) 7 Days Qty: 11 0RF Continued fluoxetine 40 mg capsule 40 mg PO DAILY trazodone 50 mg tablet 50 mg PO QHS tizanidine 4 mg tablet 6 mg PO 3XD PRN (Reason: Muscle Spasm) meloxicam 15 mg tablet 15 mg PO DAILY levothyroxine 75 mcg tablet 75 mcg PO DAILY diclofenac sodium 1 % gel 2 g TOPICAL Q4H PRN (Reason: Muscle Pain) Zenpep 5,000-17,000- 24,000 unit capsule,delayed release(DR/EC) 2 cap PO TIDWMEAL ondansetron 4 mg tablet,disintegrating 4 mg translingual Q8H PRN (Reason: Nausea And Vomiting) amitriptyline 25 mg tablet 50 mg PO BID Changed gabapentin 300 mg capsule 600 mg PO TID PRN (Reason: Pain (Scale Score 1-3)) 30 Days Qty: 180 0RF Date of admission: 12/27/21 10:16 Primary Care Provider: PHYSICIAN NOT ON STAFF,NONSTAFF Admitting Provider: Adam Spain Attending physician on admission: Dragan Ramirez Condition: Stable
[2021-12-29 11:40] VITALS: BP 139/88; PULSE 85
== END 2021-12-29 11:50 | disposition home or self-care (01) | DRG 439 ==
LOC: ANHED 18:34 → ANH3MEDSUR 19:43
PROVIDERS: Physician Assistant; Preventive Medicine Aerospace Medicine; Admitting Provider Family Medicine; Emergency Provider Emergency Medicine; Visit Provider Internal Medicine
DX: K85.20 Alcohol induced acute pancreatitis without necrosis or infection (principal); F10.239 Alcohol dependence with withdrawal, unspecified; I85.10 Secondary esophageal varices without bleeding; K86.3 Pseudocyst of pancreas; F50.00 Anorexia nervosa, unspecified; K86.0 Alcohol-induced chronic pancreatitis; Y90.3 Blood alcohol level of 60-79 mg/100 ml; E86.0 Dehydration; F10.229 Alcohol dependence with intoxication, unspecified; Z20.822 Contact with and (suspected) exposure to COVID-19; E03.9 Hypothyroidism, unspecified; F17.210 Nicotine dependence, cigarettes, uncomplicated; F41.9 Anxiety disorder, unspecified; F32.A Depression, unspecified; K70.30 Alcoholic cirrhosis of liver without ascites; R73.03 Prediabetes; Z68.31 Body mass index [BMI] 31.0-31.9, adult; Z88.0 Allergy status to penicillin
CPT/HCPCS: 36415; 74177; 80053; 80307; 81001; 81025; 83690; 83735; 85025; 85027; 96361; 96374; 96375; 96376; 99285; A9270; C9803; G0378; J1170; J1650; J2270; J2405; J3411; J7030; Q9967; U0003; U0005